=== PATIENT | male | born 1980 | race African-American/Black ===

== ENCOUNTER 2018-09-10 18:43 | Emergency (ER) | payer SELFPAY ==
[2018-09-10] MEDS ORDERED: Adacel (T-DAP) 0.5 ML SYRINGE ONE (18:48)
[2018-09-10] MEDS ORDERED: Lorazepam 2 MG/ML VIAL ONE (18:55)
[2018-09-10 19:04] LABS: Actual Bicarbonate (HCO3a) 21.1 mEq/L (22-28); Analyzer IN Cardio ER; Base Excess (BEa) -4.2 mEq/L (-2.0 to +3.0); CO2 Tension 39.5 mmHg (35.0-45.0); Calcium, Ionized 1.13 mmol/L (1.12-1.30); Carboxyhemoglobin (COHb) 0.8 gm% (0.0-3.0); Hemoglobin (Hb) 13.3 g/dL (14.0-18.0); O2 Tension (PaO2) 107.8 mmHg (80.0-100.0); Potassium - ABG Lab 3.14 mmol/L (3.70-5.30); pH, Arterial 7.35 (7.35-7.45)
[2018-09-10 19:05] LABS: #Basophils 0.1 thou/uL (0.0-0.2); #Eosinphils 0.4 thou/uL (0.0-0.7); #Lymphocytes 3.6 thou/uL (1.20-3.40); #Monocytes 0.7 thou/uL (0.11-0.59); #Neutrophils 2.9 thou/uL (1.40-6.50); %Basophils 0.8 % (0.0-1.0); %Eosinophils 4.7 % (0.0-10.0); %Lymphocytes 46.5 % (21.0-51.0); %Monocytes 9.6 % (0.0-10.0); %Neutrophils 38.3 % (42.0-75.0); Mean Corpuscular HGB CONC 31.4 g/dL (32.0-36.0); Mean Corpuscular Hemoglobin 29.3 pg (27.0-31.0); Mean Corpuscular Volume 93.5 fL (78.0-98.0); Platelet Count 170 thou/uL (130-400); RBC Distribution Width 12.4 % (11.5-14.5); Red Blood Cell (RBC) Count 4.42 mill/uL (4.70-6.10); White Blood Cell (WBC) Count 7.7 thou/uL (4.8-10.8)
[2018-09-10 19:06] LABS: ALV-art Gradient -7.445 (0-20); Puncture Site R BRACHIAL
[2018-09-10 19:14] LABS: INR-International Normal Ratio 1.1; PTT 28.5 SEC (22.9-36.1); Prothrombin Time 14.4 SEC (12.0-14.7)
[2018-09-10 19:15] LABS: ALT (SGPT) 8 U/L (8-55); AST (SGOT) 15 U/L (5-34); Albumin 3.5 g/dL (3.5-5.0); Alkaline Phosphatase 46 U/L (40-150); Anion Gap 17 mmol/L (10-20); BUN (Urea Nitrogen) 8 mg/dL (8.9-20.6); Bilirubin, Total 0.5 mg/dL (0.2-1.2); Calc. Creatinine Clearance 0 mL/min (70-130); Calcium 8.6 mg/dL (7.8-10.44); Carbon Dioxide 16 mmol/L (22-29); Chloride 111 mmol/L (98-107); Estimated GFR-MDRD 66; Glucose 107 mg/dL (70-105); Protein, Total 6.5 g/dL (6.0-8.3); Sodium 141 mmol/L (136-145)
[2018-09-10 19:17] LABS: Potassium 2.7 mmol/L (3.5-5.1)
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
[2018-09-10] MEDS ORDERED: Pot Chloride/Pot Bicarb/Cit Ac 25 mEq Effervescent Tablet ONE (20:41)
[2018-09-10] MEDS ORDERED: Ketorolac Tromethamine 30 MG/ML VIAL ONE (20:41)
[2018-09-10] MEDS ORDERED: Bacitracin Zinc 1 Packet ONE (21:04)
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
== END 2018-09-10 22:55 | disposition home or self-care (01) ==
LOC: ERS 18:43
DX: S41.112A Laceration without foreign body of left upper arm, initial encounter (principal); S00.83XA Contusion of other part of head, initial encounter; S20.419A Abrasion of unspecified back wall of thorax, initial encounter; E87.6 Hypokalemia; W26.0XXA Contact with knife, initial encounter
CPT/HCPCS: 12004; 70450; 71045; 80053; 82150; 82805; 85025; 85610; 85730; 86850; 86900; 86901; 90471; 90715; 96365; 96374; 96375; G0390; J1885; J2060